=== PATIENT | female | born 1985 | race Caucasian/White ===

== ENCOUNTER 2017-01-19 12:49 | Emergency (ER) | payer BC, OTHER ==
[~2017-01-19 12:49] MED LIST: DICYCLOMINE HCL20 MG PO; MOTRIN400 M1 PO; NO MEDICATIONS; NORCO 5/325 TAB1 TAB PO; NORFLEX100 M1 DOB; ORTHO TRI-7 DAYS X PO; PRENATAL MULTIV1 TA1; PRENATAL1 TA1 PO; ULTRAM PO; VICODIN 5/500 T1 TAB PO; VOLTAREN75 MG PO; ZOFRAN ODT4 MG PO; ZOFRAN PO
[2017-01-19] MEDS ORDERED: NO MEDICATIONS (13:02)
== END 2017-01-19 13:42 | disposition home or self-care (01) ==
LOC: SED 12:49
DX: N61.0 Mastitis without abscess (principal); J45.909 Unspecified asthma, uncomplicated; Z98.51 Tubal ligation status; F17.210 Nicotine dependence, cigarettes, uncomplicated; Z90.49 Acquired absence of other specified parts of digestive tract
CPT/HCPCS: 99283

== ENCOUNTER 2017-01-21 13:29 | Emergency (ER) | payer BC, OTHER | END 2017-01-21 14:35 | disposition home or self-care (01) | LOC: CED 13:29 → CFTX 13:29 | DX: R07.89 Other chest pain (principal); I95.9 Hypotension, unspecified; K21.9 Gastro-esophageal reflux disease without esophagitis | CPT/HCPCS: 99283 ==